=== PATIENT | male | born 1980 | race Two or more races ===

== ENCOUNTER 2019-08-31 01:42 | Emergency (ER) | payer OTHER ==
[~2019-08-31] VITALS: Ht 165.1 cm; Wt 61.2 kg
[2019-08-31 01:48] VITALS: BP 110/70
--- NOTE | 2019-08-31 01:50 | NUR ---
pt was sent [facility] for medication refill and to be tested for lew dis. pt w/ no c/o pain or disocomfort at this time. no fever. no cough or weakness reported.
[2019-08-31] MEDS ORDERED: LORAZEPAM 1 MG TABLET PO ONE (02:00)
[2019-08-31] MEDS ORDERED: LORAZEPAM 1 MG TABLET ONE (03:02)
--- NOTE | 2019-08-31 03:31 | NUR ---
Patient discharged to home in stable condition. Rx and Written and verbal after care instructions given. Patient and the mother verbalized understanding of instruction.
== END 2019-08-31 03:44 | disposition home or self-care (01) ==
LOC: ER 01:43
DX: F25.9 Schizoaffective disorder, unspecified (principal); F31.9 Bipolar disorder, unspecified; Z76.0 Encounter for issue of repeat prescription

== ENCOUNTER 2019-09-14 15:59 | Emergency (ER) | payer OTHER ==
[~2019-09-14] VITALS: Ht 170.2 cm; Wt 72.1 kg
[2019-09-14 16:17] VITALS: BP 106/64
--- NOTE | 2019-09-14 16:40 | NUR ---
Patient discharged to home in stable condition. Written and verbal after care instructions given. Patient verbalizes understanding of instruction.
== END 2019-09-14 16:43 | disposition home or self-care (01) ==
LOC: ER 16:01
DX: F31.9 Bipolar disorder, unspecified (principal); F20.9 Schizophrenia, unspecified; Z76.0 Encounter for issue of repeat prescription

== ENCOUNTER 2021-01-22 13:04 | Emergency (ER) | payer OTHER ==
[~2021-01-22] VITALS: Ht 165.1 cm; Wt 72.6 kg
--- NOTE | 2021-01-22 13:30 | NUR ---
[facility]IBMOTHER FROM HOME TO ER BE 14. AAOX4. NOT IN RESP DISTRESS. AMBULATORY. BROUGHT IN FOR FEELING OF ANGER BECAUSE PT IS NOT COMPLIANT WITH HIS MEDICATION . PT DENIES ANY THOUGHTS OF HARMING HIMSELF NOR OTHER. MOTHER IS AT BEDSIDE WITH PT. AWAITING MD FOR EVAL. WILL CONTINUE TO MONITOR PT
[2021-01-22 14:01] LABS: BASOPHILS # (AUTO) 0.1 K/uL (0.0-0.2); EOSINOPHILS % (AUTO) 2.2 % (0.0-6.0); HEMATOCRIT 41 % (39-51); HEMOGLOBIN 13.9 g/dL (13.5-17.5); LYMPHOCYTES # (AUTO) 1.8 K/uL (0.8-4.8); LYMPHOCYTES % (AUTO) 32.5 % (20.0-44.0); MEAN CORPUSCULAR HGB CONC 34 g/dl (31.0-36.0); MEAN CORPUSCULAR VOLUME 93 fL (80-96); MONOCYTES # (AUTO) 0.4 K/uL (0.1-1.30); MONOCYTES % (AUTO) 6.4 % (2.0-12.0); NEUTROPHILS # (AUTO) 3.3 K/uL (1.8-8.9); NEUTROPHILS % (AUTO) 57.9 % (43.0-81.0); PLATELET COUNT (AUTO) 228 K/uL (150-450); RED BLOOD CELL COUNT(AUTO) 4.38 MIL/uL (4.5-6.0); WHITE BLOOD COUNT (AUTO) 5.6 K/uL (4.3-11.0)
[2021-01-22 14:04] LABS: BILIRUBIN,URINE SMALL (NEGATIVE); COLOR,URINE YELLOW (YELLOW); LEUKOCYTE ESTERASE ,URINE Negative (NEGATIVE); NITRITE, URINE Negative (NEGATIVE); PROTEIN,URINE Negative (NEGATIVE); UGLUCOSE Negative (NEGATIVE)
[2021-01-22 14:08] LABS: BACTERIA,URINE Rare /HPF (None Seen); RBC,URINE NONE SEEN /HPF (0-2); SQUAMOUS EPITHELIAL CELL,UR Few /HPF (None Seen); WBC,URINE NONE SEEN /HPF (0-3)
[2021-01-22 14:10] LABS: CALCIUM, SERUM 8.8 mg/dL (8.5-10.1); CARBON DIOXIDE 27 mmol/L (21-32); CHLORIDE 105 mmol/L (98-107); CREATININE 0.9 mg/dL (0.6-1.3); GLUCOSE 93 mg/dL (74-106); POTASSIUM 3.9 mmol/L (3.5-5.1); SODIUM SERUM 142 mmol/L (136-145); UREA NITROGEN, BLOOD 23 mg/dL (7-18)
[2021-01-22 14:20] LABS: ALANINE AMINOTRANSFERASE 19 U/L (12-78); ALBUMIN 4.1 g/dL (3.4-5.0); ALCOHOL, BLOOD < 3 mg/dL (0-0); ALKALINE PHOSPHATASE 71 U/L (46-116); ASPARTATE AMINOTRANSFERASE 21 U/L (15-37); BILIRUBIN,DIRECT 0.1 mg/dL (0.0-0.2); BILIRUBIN,TOTAL 0.5 mg/dL (0.2-1.0); TOTAL PROTEIN, SERUM 7.6 g/dL (6.4-8.2)
[2021-01-22 14:21] LABS: ACETAMINOPHEN < 2 ug/ml (10-30)
--- NOTE | 2021-01-22 14:56 | NUR ---
FAXED CLINICALS TO [facility], [facility] INTAKE
--- NOTE | 2021-01-22 16:51 | NUR ---
PT ACCEPTED TO [facility] [facility] [facility] AFTER 1730 CALL [phone] ARIAN
--- NOTE | 2021-01-22 16:56 | NUR ---
TRANSPORT CALLED AM [facility] AFTER 1830 [facility] ETA 1800 TY SUSAN TERRAZAS
--- NOTE | 2021-01-22 17:55 | NUR ---
REPORT GIVEN TO CHAPARRITA BUCKNER FOR MANI AT [facility]
[2021-01-22 18:50] VITALS: BP 132/79
--- NOTE | 2021-01-22 18:52 | NUR ---
[facility] AT BEDSIDE FOR TRANSPORT TO [facility]. REPORT GIVEN. PT IS IN STABLE CONDITION FOR TRANSPORT. PT LEFT ON GURNEY WITH 2 EMT.
== END 2021-01-22 19:01 ==
LOC: ER 14:23
DX: Z02.2 Encounter for examination for admission to residential institution (principal); Z91.14 Patient's other noncompliance with medication regimen; F20.9 Schizophrenia, unspecified; F31.9 Bipolar disorder, unspecified; Z20.822 Contact with and (suspected) exposure to COVID-19
CPT/HCPCS: 36415; 80048; 80076; 80143; 80307; 80320; 81001; 85025; 87426; 99285; C9803; G0480